=== PATIENT | female | born 1970 | race Caucasian/White ===

== ENCOUNTER 2020-05-06 17:09 | Emergency (ER) | payer SELFPAY ==
[~2020-05-06] VITALS: Ht 152.4 cm; Wt 77.1 kg
[2020-05-06 17:23] VITALS: BP 143/90
--- NOTE | 2020-05-06 17:30 | NUR ---
C/O COUGH, FHEADACHE, BODY ACHES 03/31, N/V/D, LOSS OF TASTE/SMELL X 3 DAYS. FRIEND HAD COVID TESTED +. MED HX: HLD
--- NOTE | 2020-05-06 17:35 | NUR ---
COVID SWAB DONE.
--- NOTE | 2020-05-06 18:07 | NUR ---
Patient discharged with v/s stable. Written and verbal after care instructions given and explained. Patient alert, oriented and verbalized understanding of instructions. Ambulatory with steady gait. All questions addressed prior to discharge. ID band removed. Patient advised to follow up with PMD. Rx of CODEINE PHOSPHATE/PROMETHAZINE HCL, LOMOTIL & ZOFRAN given. Patient educated on indication of medication including possible reaction and side effects. Opportunity to ask questions provided and answered.
== END 2020-05-06 18:07 | disposition home or self-care (01) ==
LOC: EEVIPCON 17:09 → MED 17:09
DX: R05 Cough (principal); R51 Headache; R53.1 Weakness; I10 Essential (primary) hypertension; E78.00 Pure hypercholesterolemia, unspecified; Z20.828 Contact with and (suspected) exposure to other viral communicable diseases
CPT/HCPCS: 71045; 99284; U0003

== ENCOUNTER 2023-10-17 16:41 | Emergency (ER) | payer MEDICAID, OTHER ==
[~2023-10-17] VITALS: Ht 157.5 cm; Wt 81.6 kg
[2023-10-17 16:59] VITALS: BP 148/72; PULSE 73; RESP 18; TEMP 97; O2SAT 98
[2023-10-17 17:44] LABS: BASOPHILS # (AUTO) 0.1 K/uL (0.00-0.22); BASOPHILS % (AUTO) 0.7 % (0.0-2.0); EOSINOPHILS # (AUTO) 0.1 K/uL (0-0.4); EOSINOPHILS % (AUTO) 1.3 % (0.0-4.0); HEMATOCRIT 33.6 % (36-48); HEMOGLOBIN 11.4 g/dL (12.0-16.0); LYMPHOCYTES # (AUTO) 2.8 K/uL (2.5-16.5); LYMPHOCYTES % (AUTO) 38.9 % (20.5-51.1); MEAN CORPUSCULAR HEMOGLOBIN 28 pg (27-31); MEAN CORPUSCULAR HGB CONC 34 g/dL (33-37); MONOCYTES # (AUTO) 0.4 K/uL (0.8-1.0); MONOCYTES % (AUTO) 5.7 % (1.7-9.3); NEUTROPHILS # (AUTO) 3.8 K/uL (1.8-7.7); NEUTROPHILS % (AUTO) 53.4 % (42.2-75.2); PLATELET COUNT (AUTO) 249 K/uL (140-450); WHITE BLOOD COUNT (AUTO) 7.1 K/uL (4.8-10.8)
[2023-10-17 18:00] LABS: INR 0.88 (0.8-1.2); PARTIAL THROMBOPLASTIN TIME 24.7 secs (22-35.6); PROTHROMBIN TIME 9.3 secs (10.8-13.4)
[2023-10-17 18:03] LABS: ANION GAP 12.6 (8-16); CALCIUM 8.9 mg/dL (8.5-10.1); CARBON DIOXIDE 26.2 mmol/L (21-32); CREATININE 0.7 mg/dL (0.6-1.3); POTASSIUM 3.8 mmol/L (3.5-5.1)
[2023-10-17 18:08] LABS: ALBUMIN 3.3 g/dL (3.4-5.0); TOTAL BILIRUBIN 0.2 mg/dL (0.0-1.0); TOTAL PROTEIN, SERUM 7.3 g/dL (6.4-8.2)
[2023-10-17] MEDS ORDERED: FERR325E14 PO (19:10)
[2023-10-17] MEDS ORDERED: MEDR10TA PO (19:10)
[2023-10-17 19:30] VITALS: BP 120/80; PULSE 79; RESP 18; TEMP 98; O2SAT 98
== END 2023-10-17 19:30 | disposition home or self-care (01) ==
LOC: MED 16:41
DX: N93.8 Other specified abnormal uterine and vaginal bleeding (principal); I10 Essential (primary) hypertension; Z79.899 Other long term (current) drug therapy
CPT/HCPCS: 36415; 76830; 80048; 80076; 85025; 85610; 85730; 86886; 86900; 86901; 99284